=== PATIENT | male | born 1960 | race Caucasian/White ===

== ENCOUNTER → 2017-10-29 | Day surgery (SDC) | payer OTHER ==
[~2017-10-29] VITALS: Ht 185.4 cm; Wt 117.9 kg
[~2017-10-29] MED LIST: LIPITOR10 M1 PO; LOSARTAN POTASS25 M1 PO; TOPROL XL25 M1 PO; XARELTO20 M2 PO
--- NOTE | 2017-10-29 09:42 | Operative Report ---
Operative/Inv Procedure Report Surgery Date: 10/29/17 Name of Procedure: Right leg venogram, US guidance for vascular access, catheter to vein, injectuion of altelase 15 mg Pre-Operative Diagnosis: Right leg DVT Post-Operative Diagnosis: Chronic DVT R. leg Estimated Blood Loss: scant Surgeon/Flaker Tender: Marco Antonio Keane MD Anesthesia: local monitored anesthesi Implants: None Complications: None Condition: Stable to SDS Operative Indication: This is a 57-year-old male who underwent right shoulder operation in early 2018. Postoperatively he is noted to have right leg swelling approximately a week following his procedure. A diagnosis of DVT was made in the place was anti- coagulated. He was seen by our service last week approximately 6 weeks post intervention. He was noted to have chronic swelling and discomfort. The decision was made to proceed with possible percutaneous mechanical thrombectomy. Risks benefits and alternatives were explained to the patient including bleeding, infection, pain, scar nerve injury and limb loss. He decide to proceed with intervention. Operative/Procedure Note Note: The patient was brought to the operating room and laid prone on the operating room table. He was given only light sedation and care was given to his recent shoulder intervention so as to make him comfortable. A timeout was held in accordance with [facility] policy. The right popliteal vein was punctured under ultrasound guidance with a 21-gauge and then an 18-gauge needle. Access was noted to be difficult. Advancement of a 0.018 inch an 0.035 inch wire was necessary to achieve access. A 5 [place] sheath was placed. A right leg venogram was then performed in AP and oblique projections. A right leg venogram demonstrates an occlusive DVT in the right popliteal vein. There is dense collateralization. This is present from the popliteal vein through the superficial femoral vein. His reconstitution at the level of the right common femoral vein. Through the sheath a catheter was placed. With the use of multiple catheters and wires attempts were made to traverse this chronic appearing DVT. 15 mg of TPA were instilled into the clot. Eventually these efforts were abandoned being that the nature of the clot was chronic in nature. Some slight extravasation of contrast was noted due to the occlusive nature of the DVT. There is no active bleeding. The catheter, sheath and wire systems with then removed. BioGlue was used to seal the puncture site and the leg was wrapped with a Kerlix and Tai bandage. The patient will be discharged home with follow-up as an outpatient for serial ultrasound surveillance. Will be placed on long-term anticoagulation for 6 months. CC: Anum GAY,Mitzi; Anum GAY,Thierno Finley
--- NOTE | 2017-10-31 08:09 | RADIOLOGY REPORT ---
EXAMINATION: CR FEMUR/INTRAOPERATIVE FLUOROSCOPY CLINICAL INDICATION: Right leg venogram in OR. COMPARISON: None TECHNIQUE/FINDINGS: Fluoroscopic equipment was dedicated to the operating room for the performance of an intraoperative procedure. One spot film and 9 cine fluoroscopy runs were acquired and are archived in PACS. Please refer to operative notes for procedural detail. FLUOROSCOPY TIME: 7 minutes 9 seconds. IMPRESSION: Administrative dictation for intraoperative fluoroscopy and image archiving in PACS. Please refer to operative notes for details.
== END ==
LOC: STS 04:11
DX: I82.531 Chronic embolism and thrombosis of right popliteal vein (principal); I80.11 Phlebitis and thrombophlebitis of right femoral vein; I10 Essential (primary) hypertension; G47.33 Obstructive sleep apnea (adult) (pediatric); Z79.01 Long term (current) use of anticoagulants; I83.90 Asymptomatic varicose veins of unspecified lower extremity
CPT/HCPCS: 36415; 73552; J0131; J0690; J1644; J2250; J2997; J3490; Q9967